=== PATIENT | female | born 1965 | race Caucasian/White ===

== ENCOUNTER 2017-10-31 17:22 | Emergency (ER) | payer OTHER ==
[~2017-10-31] VITALS: Ht 175.3 cm; Wt 143.8 kg
[~2017-10-31 17:22] MED LIST: HALCION0.25 MG PO; NORCO 5-325 TA1 EACH PO
[2017-10-31] MEDS ORDERED: OMEPRAZOLE20 M2 PO (17:38)
--- OUTSIDE RECORDS SUMMARY | 2017-10-31 18:02 | XMS | Clinical Summary ---
Demographics + + + | Address | [address] | | | [place] [address] | + + + | Home Phone | | + + + | Preferred Language | Unknown | + + + | Marital Status | Single | + + + | Nondenominational Affiliation | Unknown | + + + | Race | White | + + + | Ethnic Group | Not or | + + + Author + + + | Author | [facility] | + + + | Organization | [facility] | + + + | Address | Unknown | + + + | Phone | Unavailable | + + + Support + + +---------+ + | Name | Relationship | Address | Phone | + + +---------+ + | Sha Sutton | ECON | Unknown | | + + +---------+ + Care Team Providers + +------+ + | Care Mold Filler Name | Role | Phone | + +------+ + | Asher Lane MD | PP | Unavailable | + +------+ + Source Comments LUIS FERNANDO is fully live on both [facility] and [facility] Allergies Not on File Current Medications Not on file Active Problems + + + | Problem | Noted Date | + + + | Wheezing | 10/03/2014 | + + + | Obesity (BMI 30-39.9) | 10/03/2014 | + + + Encounters +--------+ + + + + | Date | Type | Specialty | Care Team | Description | +--------+ + + + + | 10/13/ | Abstract | | Clinic, Surgery | | | 2018 | | | | | +--------+ + + + + from Last 3 Months Social History + +-------+ +--------+------+ | Tobacco Use | Types | Packs/Day | Years | Date | | | | | Used | | + +-------+ +--------+------+ | Never Assessed | | | | | + +-------+ +--------+------+ + + + | Sex Assigned at | Date Recorded | | | | + + + | Not on file | | + + + Plan of Treatment + + + + + | Health Maintenance | Due Date | Last Done | Comments | + + + + + | PPSV PNEUMOCOCCAL | | | | | VACCINE | 6 | | | + + + + + | INFLUENZA VACCINE | | | | | (FLU SHOT) | 8 | | | + + + + + Results Not on filefrom Last 3 Months Insurance + +--------+ +--------+-------+---------+ | Payer | Benefi | Subscriber | Type | Phone | Address | | | t Plan | ID | | | | | | / | | | | | | | Group | | | | | + +--------+ +--------+-------+---------+ | CLINICAL REIMBURSEMENT SPECIALIST MEDICAID | CLINICAL REIMBURSEMENT SPECIALIST | xxxxxxxx | Medica | | | | | [place] | | id | | | | | [place] | | | | | + +--------+ +--------+-------+---------+ + +--------+ +--------+ + + | Guarantor Name | Accoun | Relation to | Date | Phone | Billing Address | | | t Type | Patient | of | | | | | | | | | | + +--------+ +--------+ + + | LISSET TAFOYA | Person | Self [birth year] | Home: | [address] | | | [place] | | 1966 | [phone] | [place] [address] | | | [place] | | | [phone] | | + +--------+ +--------+ + +"
--- OUTSIDE RECORDS SUMMARY | 2017-10-31 18:02 | XMS | Clinical Summary ---
Demographics + + + | Address | [address] | | | [place] [address] | + + + | Home Phone | | + + + | Preferred Language | Unknown | + + + | Marital Status | | + + + | Orthodoxy Affiliation | Unknown | + + + | Race | Unknown | + + + | Ethnic Group | Unknown | + + + Author + + + | Author | [facility] | | | and [place] | + + + | Organization | [facility] | | | and [place] | + + + | Address | Unknown | + + + | Phone | Unavailable | + + + Support + + +---------+ + | Name | Relationship | Address | Phone | + + +---------+ + | Emily Leo | ECON | Unknown | | + + +---------+ + | Sha Sutton | ECON | Unknown | | + + +---------+ + Care Team Providers + +------+ + | Care Billing Adjudicator Name | Role | Phone | + +------+ + | Asher Lane MD | PP | | + +------+ + Allergies + + + + + + | Active Allergy | Reactions | Severity | Noted | Comments | | | | | Date | | + + + + + + | Celecoxib | Rash | Low | 06/16/19 | | | | | | 15 | | + + + + + + | Codeine | Other (See Comments) | Low | 06/11/19 | Nightmares | | | | | 14 | | + + + + + + | Gabapentin | | | 04/24/19 | | | | | | 17 | | + + + + + + | Nabumetone | Other (See Comments) | Low | 06/16/19 | Ear ringing | | | | | 15 | | + + + + + + | Trazodone | Other (See Comments) | Low | 06/11/19 | Heart palpitations | | | | | 14 | | + + + + + + Current Medications + + +--------+---------+------+------+-------+ | Prescription | Sig. | Disp. | Refills | Star | End | Statu | | | | | | t | Date | s | | | | | | Date | | | + + +--------+---------+------+------+-------+ | cholecalciferol | Take 2,000 Units by | | | | | Activ | | (VITAMIN D-3) 1,000 | mouth Daily. | | | | | e | | units capsule | | | | | | | + + +--------+---------+------+------+-------+ | | Take 3 tablets by | | | | | Activ | | Fxbotqo-Ovqdnqfub-Wu | mouth nightly. | | | | | e | | nc (SKI-IZR-IUEY PO) | | | | | | | + + +--------+---------+------+------+-------+ | tocopherol | Take 800 Units by | | | | | Activ | | (VITAMIN E) 400 | mouth Daily. | | | | | e | | units capsule | | | | | | | + + +--------+---------+------+------+-------+ | fish oil 1,000 mg | Take 1,000 mg by | | | | | Activ | | capsule | mouth Daily. | | | | | e | + + +--------+---------+------+------+-------+ | varenicline | Take 0.5mg by mouth | 53 | 1 | 01/0 | | Activ | | (CHANTIX NANCY) 0.5 MG | for 3 days, then | tablet | | 4/20 | | e | | X 11 & 1 MG X 42 | 0.5mg by mouth twice | | | 18 | | | | tablet | daily for 4 days, | | | | | | | | then 1 mg twice | | | | | | | | daily. See | | | | | | | | packaging. | | | | | | + + +--------+---------+------+------+-------+ | diclofenac | Take 1 tablet by | 60 | 2 | 01/0 | | Activ | | (VOLTAREN) 75 mg EC | mouth 2 times daily. | tablet | | 4/20 | | e | | tablet | | | | 18 | | | + + +--------+---------+------+------+-------+ | fluconazole | | | | 03/2 | | Activ | | (DIFLUCAN) 100 mg | | | | 1/20 | | e | | tablet | | | | 18 | | | + + +--------+---------+------+------+-------+ | ammonium lactate | | | | 03/0 | | Activ | | (LAC-HYDRIN) 12% | | | | 3/20 | | e | | cream | | | | 18 | | | + + +--------+---------+------+------+-------+ | azithromycin | Take 2 tablets by | 6 | 0 | 06/0 | | Activ | | (ZITHROMAX) 250 mg | mouth on day 1, and | tablet | | 03/08 | | e | | tablet | 1 tablet by mouth | | | 18 | | | | | every day | | | | | | + + +--------+---------+------+------+-------+ Active Problems + + + | Problem | Noted Date | + + + | Dizziness | 02/20/2017 | + + + | Hypercholesterolemia | 12/17/2016 | + + + | Partial symptomatic epilepsy with complex partial seizures, not | 11/19/2016 | | intractable, without status epilepticus (HCC) | | + + + | Chronic left-sided thoracic back pain | 04/25/2016 | + + + | Thoracic radiculopathy | 04/25/2016 | + + + | Chronic bilateral low back pain with bilateral sciatica | 04/25/2016 | + + + | DDD (degenerative disc disease), lumbar | 04/25/2016 | + + + | Spondylolisthesis, lumbar region | 04/25/2016 | + + + | 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 | 04/25/2016 | + + + | Facet arthritis of lumbar region (HCC) | 04/25/2016 | + + + | Dysphagia, unspecified(787.20) | 07/05/2014 | + + + + + | Overview: ICD-10 Record update | + + + + + | Nausea alone | 07/05/2014 | + + + + + | Overview: ICD-10 Record update | + + + + + | Abdominal pain, epigastric | 07/05/2014 | + + + | Loss of weight | 07/05/2014 | + + + | Other nonspecific (abnormal) findings on radiological and other | 07/05/2014 | | examinations of body structure | | + + + | Other symptoms involving digestive system(787.99) | 07/05/2014 | + + + | Obesity (BMI 30-39.9) | | + + + | Nausea alone | | + + + + + | Overview: ICD-10 Record update | + + Immunizations + + + + | Name | Dates Previously Given | Next Due | + + + + | TDAP, (ADOL/ADULT) | 09/19/2013 | | + + + + Family History + + +------+ + | Medical History | Relation | Name | Comments | + + +------+ + | Depression | Brother | | | + + +------+ + | Dementia | Father | | | + + +------+ + | Depression | Father | | | + + +------+ + | Diabetes | Father | | | + + +------+ + | Heart attack | Father | | | + + +------+ + | Parkinsonism | Father | | | + + +------+ + | Atrial Fibrillation | Mother | | | + + +------+ + | Colon polyps | Mother | | | + + +------+ + | Depression | Mother | | | + + +------+ + | Heart disease | Mother | | | + + +------+ + | High blood pressure | Mother | | | + + +------+ + + +------+--------+ + | Relation | Name | Status | Comments | + +------+--------+ + | Brother | | Alive | | + +------+--------+ + | Brother | | | | + +------+--------+ + | Child | | Other | STATUS UNKNOWN | + +------+--------+ + | Child | | Other | STATUS UNKNOWN | + +------+--------+ + | Father | | Alive | | + +------+--------+ + | Mother | | Alive | | + +------+--------+ + Social History + +-------+ +--------+ + | Tobacco Use | Types | Packs/Day | Years | Date | | | | | Used | | + +-------+ +--------+ + | Former Smoker | | 0.5 | 35 | Quit: 04/17/2014 | + +-------+ +--------+ + + +---+---+---+ | Smokeless Tobacco: | | | | | Former User | | | | + +---+---+---+ + + | Comments: used chewing tabbaco a few times 30 years ago | + + + + +---------+ + | Alcohol Use | Drinks/We | oz/Week | Comments | | | ek | | | + + +---------+ + | No | 0 | 0.0 | past use but not often | | | Standard | | | | | drinks or | | | | | | | | | | equivalen | | | | | t | | | + + +---------+ + + + + | Sex Assigned at | Date Recorded | | | | + + + | Not on file | | + + + Last Filed Vital Signs + + + + | Vital Sign | Reading | Time Taken | + + + + | Blood Pressure | 148/79 | 07/18/20174 PDT | + + + + | Pulse | 57 | 07/18/20171253 PDT | + + + + | Temperature | 36.6 C (97.9 F) | 07/18/20174 PDT | + + + + | Respiratory Rate | 16 | 07/18/20171253 PDT | + + + + | Oxygen Saturation | 97% | 07/18/20171253 PDT | + + + + | Inhaled Oxygen | - | - | | Concentration | | | + + + + | Weight | 144.1 kg (317 lb | 07/18/20171253 PDT | | | 10.9 oz) | | + + + + | Height | 175.3 cm (5' 9") | 07/18/20171253 PDT | + + + + | Body Mass Index | 46.91 | 07/18/20171253 PDT | + + + + Plan of Treatment + + + + + | Health Maintenance | Due Date | Last Done | Comments | + + + + + | BREAST CANCER | | | | | SCREENING (MAMM Q2 | 6 | | | | YEARS 50-74) | | | | + + + + + | Vaccine: Influenza | | | | | (#1) | 8 | | | + + + + + | Vaccine: | | 09/19/2013 | | | Dtap/Tdap/Td (2 - | 4 | | | | Td) | | | | + + + + + | Colorectal Cancer | | 07/13/2014, 07/13/2014 | | | Screening | 5 | | | | (Colonoscopy) | | | | + + + + + Results Not on filefrom Last 3 Months Insurance + +--------+ +--------+ +---------+ | Payer | Benefi | Subscriber | Type | Phone | Address | | | t Plan | ID | | | | | | / | | | | | | | Group | | | | | + +--------+ +--------+ +---------+ | [employer] | MODA | [id number] | Medica | +- | | | MEDICAID HMO | HEALTH | | id | 9821 | | | | [place] | | | | | | | [place] | | | | | + +--------+ +--------+ +---------+ + +--------+ +--------+ + + | Guarantor Name | Accoun | Relation to | Date | Phone | Billing Address | | | t Type | Patient | of | | | | | | | | | | + +--------+ +--------+ + + | LISSET TAFOYA | Person | Self | [birth year] | Home: | [address] | | | [place] | | 1966 | [phone] | [place] | | | [place] | | | [phone] | + +--------+ +--------+ + +
--- OUTSIDE RECORDS SUMMARY | 2017-10-31 18:02 | XMS | Encounter Summary ---
Demographics + + + | Address | [address] | | | [place] [address] | + + + | Home Phone [...] Author + + + | Author | [facility] | + + + | Organization | [facility] | + + + | Address | Unknown | + + + | Phone | Unavailable | + + + Support + + +---------+ + | Name | Relationship | Address | Phone | + + +---------+ + | Sha Sutton | ECON | Unknown | | + + +---------+ + Care Team Providers + +------+ + | Care Ultrasound Spec Name | Role | Phone | + +------+ + | Asher Lane MD | PCP | Unavailable | + +------+ + Encounter Details +--------+ + + + + | Date | Type | Department | Care Team | Description | +--------+ + + + + | 10/13/ | Abstract | Digestive Health | Clinic, Surgery | | | 2018 | | Center [facility] 6th | | | | | | Floor [address] | | | | | | [place] Mailcode: [address] | | | | | | [facility] | | | | | | and Healing, 6th | | | | | | floor [place], [place] | | | | | | [address] | | | | | | [phone] | | | +--------+ + + + + Social History + +-------+ +--------+------+ | Tobacco [...] on file | | + + + as of this encounter Plan of Treatment Not on fileas of this encounter Visit Diagnoses Not on filein this encounter"
--- OUTSIDE RECORDS SUMMARY | 2017-10-31 18:02 | XMS | Clinical Summary ---
Demographics + + + | Address | [address] | | | [place] [address] | + + + | Home Phone | | + + + | Preferred Language | Unknown | + + + | Marital Status | Single | + + + | Christian Affiliation | Unknown | + + + | Race | White | + + + | Ethnic Group | Not or | + + + Author + + + | Author | [facility] | + + + | Organization | [facility] | + + + | Address | Unknown | + + + | Phone | Unavailable | + + + Support + + +---------+ + | Name | Relationship | Address | Phone | + + +---------+ + | Sha Sutton | ECON | Unknown | | + + +---------+ + Care Team Providers + +------+ + | Care Welt Maker Name | Role | Phone | + +------+ + | Asher Lane MD | PP | Unavailable | + +------+ + Source Comments LUIS FERNANDO is fully live on both [facility] and [facility] [facility] Allergies Not on File Current Medications Not [...] | | | + +--------+ +--------+-------+---------+ | OIL FILTERS INSPECTOR MEDICAID | OIL FILTERS INSPECTOR | xxxxxxxx | Medica | | | [...] | | al/[place] | | 1966 | [phone] | [place] [address] | | | [place] | | | [phone] | | + +--------+ +--------+ + +"
--- OUTSIDE RECORDS SUMMARY | 2017-10-31 18:02 | XMS | Encounter Summary ---
Demographics + + + | Address | [address] | | | [place] [address] | + + + | Home Phone | | + + + | Preferred Language | Unknown | + + + | Marital Status | Single | + + + | Faith Affiliation | Unknown | + + + | Race | White | + + + | Ethnic Group | Not or | + + + Author + + + | Author | [facility] | + + + | Organization | [facility] | + + + | Address | Unknown | + + + | Phone | Unavailable | + + + Support + + +---------+ + | Name | Relationship | Address | Phone | + + +---------+ + | Sha Sutton | ECON | Unknown | | + + +---------+ + Care Team Providers + +------+ + | Care Field Cashier Name | Role | Phone | + +------+ + | Asher Lane MD | PCP | Unavailable | + +------+ + Encounter Details +--------+ + + + + | Date | Type | Department | Care Team | Description | +--------+ + + + + | 10/13/ | Abstract | Digestive Health | Clinic, Surgery | | | 2018 | | Center [facility] 6th | | | | | | Floor [address] | | | | | | [place] Mailcode: [address] | | | | | | [facility] | | | | | | and Healing, 6th | | | | | | floor [place], [place] | | | | | | [address] | | | | | | [phone] | | | +--------+ + + + [...]
--- OUTSIDE RECORDS SUMMARY | 2017-10-31 18:02 | XMS | Clinical Summary ---
Demographics + + + | Address | [address] | | | [place] [address] | + + + | Home Phone | | + + + | Preferred Language | Unknown | + + + | Marital Status | | + + + | Zoroastrianism Affiliation | Unknown | + + + | Race | Unknown | + + + | Ethnic Group | Unknown | + + + Author + + + | Author | [facility] | | | and [place] | + + + | Organization | [facility] | | [...] Team Providers + +------+ + | Care Wire Steward Name | Role | Phone | + [...] | | | | Activ | | Kglcufz-Diufvfyfc-Ty | mouth nightly. | | | | | e | | nc ([id number] PO) | | | | | | [...] | [employer] | MODA | [id number] | Medica | +- | | | [...] | | al/[place] | | 1966 | [phone] | [place] | | | [place] | | | [phone] | + +--------+ +--------+ + +
[2017-10-31] MEDS ORDERED: K-TAB ER20 MEQ PO (18:38)
[2017-10-31] MEDS ORDERED: LASIX20 MG PO (18:38)
--- NOTE | 2017-10-31 22:52 | EKG ---
[facility] [address] [place] [address] Signed Sinus bradycardia Septal infarct , age undetermined Abnormal ECG No previous ECGs available Confirmed by KALLI CAMERON MD ([id number]) on 10/31/2017 10:52:37 PM Electronically Signed By: KALLI CAMERON MD 10/31/17 2252 PATIENT NAME: LISSET HURTADO JOSE ALBERTO Electrocardiogram DATE OF : 65 PHYSICIAN: KALLI CAMERON MD REPORT #: [id number] REPORT IS CONFIDENTIAL AND NOT TO BE RELEASED WITHOUT AUTHORIZATION
== END 2017-10-31 18:50 | disposition home or self-care (01) ==
LOC: ED 17:22
DX: I10 Essential (primary) hypertension (principal); R06.00 Dyspnea, unspecified; Z87.891 Personal history of nicotine dependence; Z88.5 Allergy status to narcotic agent; Z88.8 Allergy status to other drugs, medicaments and biological substances; Z79.899 Other long term (current) drug therapy
CPT/HCPCS: 71046; 80053; 83880; 84484; 85025; 93005; 93010; 99285

== ENCOUNTER 2019-08-09 11:54 | Emergency (ER) | payer MEDICARE, OTHER ==
[~2019-08-09] VITALS: Ht 175.3 cm; Wt 127.0 kg
[~2019-08-09 11:54] MED LIST changes: +K-TAB ER20 MEQ PO; +LASIX20 MG PO; +OMEPRAZOLE20 M2 PO
[2019-08-09] MEDS ORDERED: DULOXETINE HCL20 MG PO (12:03)
[2019-08-09] MEDS ORDERED: PREGABALIN100 MG PO (12:03)
[2019-08-09] MEDS ORDERED: HYDROCHLOROTHIA25 MG PO (12:04)
== END 2019-08-09 13:37 | disposition home or self-care (01) ==
LOC: ED 11:54
DX: M79.671 Pain in right foot (principal); Z87.891 Personal history of nicotine dependence; Z88.5 Allergy status to narcotic agent; Z88.8 Allergy status to other drugs, medicaments and biological substances; Z79.899 Other long term (current) drug therapy
CPT/HCPCS: 73630; 99283-25; A9270

== ENCOUNTER 2022-05-07 19:14 | Emergency (ER) | payer MEDICARE, OTHER ==
[~2022-05-07] VITALS: Ht 175.3 cm; Wt 122.5 kg
[~2022-05-07 19:14] MED LIST changes: +DULOXETINE HCL20 MG PO; +HYDROCHLOROTHIA25 MG PO; +PREGABALIN100 MG PO
--- OUTSIDE RECORDS SUMMARY | 2022-05-07 19:16 | XMS ---
PreManage Notification: LISSET HURTADO [employer] Lead Events No recent Security Events currently on file CRITERIA MET - PDMP CARE PROVIDERS -, [place]- Dentist: [employer] Business Manager [facility] PHONE: [phone] Chel has no Care Guidelines for this patient. E.DShena VISIT COUNT (12 MO.) 1 [facility] TOTAL 1 NOTE: Visits indicate total known visits. ED/UCC VISIT TRACKING (12 MO.) 05/07/2022 19:14 [facility] [place] TYPE: Emergency COMPLAINT: - CHEST PAIN INPATIENT VISIT TRACKING (12 MO.) No inpatient visits to display in this time frame [email or web address]
[2022-05-07] MEDS ORDERED: CLINDAMYCIN HC300 MG PO (19:43)
[2022-05-07] MEDS ORDERED: FLUTICASONE PRO16 GM NAS (19:43)
[2022-05-07] MEDS ORDERED: CLONAZEPAM1 MG PO (19:44)
[2022-05-07] MEDS ORDERED: TRIAMTERENE-HC1 EAC1 PO (19:45)
[2022-05-07] MEDS ORDERED: IMVEXXY4 MCG VAGINAL (19:45)
[2022-05-07] MEDS ORDERED: MELOXICAM7.5 MG PO (19:45)
[2022-05-07] MEDS ORDERED: QUETIAPINE FUMA50 MG PO (19:46)
[2022-05-07] MEDS ORDERED: PREGABALIN200 MG PO (19:46)
[2022-05-07] MEDS ORDERED: ESTRADIOL0.5 MG PO (19:46)
--- NOTE | 2022-05-08 18:59 | EKG ---
[facility] [address] [facility] [place] [address] Signed Sinus bradycardia Otherwise normal ECG When compared with ECG of 31-OCT-2017 17:34, Nonspecific T wave abnormality no longer evident in Inferior leads Confirmed by Jesse Candelaria MD () on 05/08/2022 6:59:00 PM Electronically Signed By: JESSE CANDELARIA MD 05/08/22 1859 PATIENT NAME: HURTADOLISSET JOSE ALBERTO Electrocardiogram DATE OF : 65 PHYSICIAN: JESSE CANDELARIA MD REPORT #: [id number] REPORT IS CONFIDENTIAL AND NOT TO BE RELEASED WITHOUT AUTHORIZATION
--- NOTE | 2022-05-08 19:00 | EKG ---
[facility] [address] [place] [address] Signed Sinus bradycardia Otherwise normal ECG When compared with ECG of 07-MAY-2022 19:16, No significant change was found Confirmed by Jesse Candelaria MD () on 05/08/2022 6:59:57 PM Electronically Signed By: JESSE CANDELARIA MD 05/08/22 1900 PATIENT NAME: LISSET HURTADO JOSE ALBERTO Electrocardiogram DATE OF : 65 PHYSICIAN: JESSE CANDELARIA MD REPORT #: [id number] REPORT IS CONFIDENTIAL AND NOT TO BE RELEASED WITHOUT AUTHORIZATION
== END 2022-05-07 23:47 | disposition short-term general hospital (02) ==
LOC: ED 19:14
DX: I21.4 Non-ST elevation (NSTEMI) myocardial infarction (principal); Z20.822 Contact with and (suspected) exposure to COVID-19; G47.00 Insomnia, unspecified; Z87.891 Personal history of nicotine dependence; Z88.5 Allergy status to narcotic agent; Z88.8 Allergy status to other drugs, medicaments and biological substances; Z79.899 Other long term (current) drug therapy
CPT/HCPCS: 36415; 71045; 71260; 80053; 83735; 84484; 85025; 85379; 85610; 85730; 93005; 93010; 96374; 96375; 99285-25; A9270; C9803; J1644; Q9967; U0003

== ENCOUNTER 2024-10-05 17:18 | Emergency (ER) | payer MEDICARE, OTHER ==
[~2024-10-05] VITALS: Ht 175.3 cm; Wt 141.5 kg
[~2024-10-05 17:18] MED LIST changes: +ABILIFY2 MG PO; +ALL DAY ALLERGY10 MG PO; +CLARITIN10 MG PO; +CLINDAMYCIN HC300 MG PO; +CLONAZEPAM1 MG PO; +DESVENLAFAXINE100 MG PO; +ESTRADIOL0.5 MG PO; +FLUTICASONE PRO16 GM NAS; +IMVEXXY4 MCG VAGINAL; +LIPITOR80 MG GT; +MELOXICAM7.5 MG PO; +PREGABALIN200 MG PO; +QUETIAPINE FUM150 M1 PO; +TRIAMTERENE-HC1 EAC1 PO
[2024-10-05 20:36] LABS: BASOPHILS 0.1 % (0.1-1.2); EOSINOPHILS 0.3 % (0.7-5.8); LYMPHOCYTES 30.0 % (19.3-51.7); MCH 29.0 PG (25.6-32.2); MCHC 32.1 g/dL (32.2-35.5); MCV 90.5 fL (79.4-94.8); MONOCYTES 8.6 % (4.7-12.5); NEUTROPHILS 60.7 % (34.0-71.1); RBC 4.41 M/uL (3.93-5.22)
[2024-10-05 20:59] LABS: ALT (SGPT) 27.0 U/L (14-59); AST (SGOT) 17.0 U/L (15-37); GLOMERULAR FILTRATION RATE,EST 68.0 mL/min (>60); PROTEIN, TOTAL 6.9 g/dL (6.4-8.2); UREA NITROGEN 15.0 mg/dL (7-18)
[2024-10-05] MEDS ORDERED: CLOBETASOL PROP15 GM TOP (20:59)
[2024-10-05 21:18] LABS: TSH, 3RD GENERATION 2.642 uIU/mL (0.358-3.740)
[2024-10-05 21:23] VITALS: BP 151/77
== END 2024-10-05 21:24 | disposition home or self-care (01) ==
LOC: ED 17:18
PROVIDERS: Internal Medicine
DX: G57.11 Meralgia paresthetica, right lower limb (principal); Z88.5 Allergy status to narcotic agent; Z79.899 Other long term (current) drug therapy; Z87.891 Personal history of nicotine dependence
CPT/HCPCS: 36415; 80053; 84443; 85025; 85379; 99284